=== PATIENT | female | born 1965 | race Two or more races ===

== ENCOUNTER 2024-03-13 19:58 | Emergency (ER) | payer BC ==
[~2024-03-13] VITALS: Ht 167.6 cm; Wt 64.0 kg
[2024-03-13] MEDS ORDERED: KETOROLAC TROMETHAMINE 10 MG TABLET PO PRN (23:30)
[2024-03-13] MEDS ORDERED: KETOROLAC TROMETHAMINE 10 MG TABLET PO ONE (23:42)
== END 2024-03-14 01:47 | disposition home or self-care (01) ==
LOC: ER 20:00
DX: S52.591A Other fractures of lower end of right radius, initial encounter for closed fracture (principal); W19.XXXA Unspecified fall, initial encounter; Y93.89 Activity, other specified; Y92.89 Other specified places as the place of occurrence of the external cause; Y99.8 Other external cause status